=== PATIENT | male | born 1975 | race Caucasian/White ===

== ENCOUNTER 2017-05-17 22:06 | Emergency (ER) | payer OTHER ==
[~2017-05-17] VITALS: Ht 177.8 cm; Wt 93.0 kg
[~2017-05-17 22:06] MED LIST: NAPROSYN500 MG PO; PANTOPRAZOLE SOD DR
[2017-05-17] MEDS ORDERED: PANTOPRAZOLE SO40 MG PO (22:11)
[2017-05-17] MEDS ORDERED: NAPROSYN500 MG PO (23:19)
[2017-05-17] MEDS ORDERED: CYCLOBENZAPRINE5 M3 PO (23:19)
== END 2017-05-17 23:42 | disposition home or self-care (01) ==
LOC: ED 22:06
DX: S39.012A Strain of muscle, fascia and tendon of lower back, initial encounter (principal); W11.XXXA Fall on and from ladder, initial encounter; Y93.01 Activity, walking, marching and hiking; Y92.9 Unspecified place or not applicable; Y99.9 Unspecified external cause status

== ENCOUNTER 2018-11-12 14:18 | Emergency (ER) | payer OTHER ==
[~2018-11-12] VITALS: Wt 90.7 kg
[~2018-11-12 14:18] MED LIST changes: +CYCLOBENZAPRINE5 M3 PO; +PANTOPRAZOLE SO40 MG PO
[2018-11-12] MEDS ORDERED: Motrin,Rufen800 MG PO (15:57)
== END 2018-11-12 16:15 | disposition home or self-care (01) ==
LOC: ED 14:18
DX: S63.502A Unspecified sprain of left wrist, initial encounter (principal); Z79.899 Other long term (current) drug therapy; V49.9XXA Car occupant (driver) (passenger) injured in unspecified traffic accident, initial encounter; Y93.89 Activity, other specified; Y92.488 Other paved roadways as the place of occurrence of the external cause; Y99.8 Other external cause status